=== PATIENT | male | born 1950 | race Caucasian/White ===

== ENCOUNTER 2023-01-19 08:58 | Outpatient (CLI) | payer MEDICARE, SELFPAY | END 2023-01-19 08:59 | disposition home or self-care (01) | PROVIDERS: PCP Family Medicine; Visit Provider Family Medicine | DX: Z00.00 Encounter for general adult medical examination without abnormal findings (principal); E78.00 Pure hypercholesterolemia, unspecified; R31.9 Hematuria, unspecified; Z12.5 Encounter for screening for malignant neoplasm of prostate | CPT/HCPCS: 80053; 80061; 84153 ==

== ENCOUNTER 2023-01-23 08:41 | Outpatient (CLI) | payer MEDICARE, SELFPAY ==
--- NOTE | 2023-01-23 08:15 | CRLHL7_ITS ---
For Patients: As a result of the Century Cures Act, medical imaging exams and procedure reports are released immediately into your electronic medical record. You may view this report before your referring provider. If you have questions, please contact your health care provider. CLINICAL HISTORY: bruit, giddiness TECHNIQUE: The carotid circulations and the vertebral arteries in the neck were examined with bains-scale ultrasound, color-flow and Doppler spectral analysis. Degrees of stenosis were determined using SRU 2002 Consensus Panel Criteria. FINDINGS: Sonographic images demonstrate mild intimal thickening without suspicious soft tissue mass. There was antegrade blood flow demonstrated within the vertebral arteries and the subclavian arteries demonstrated a normal triphasic waveform. The spectral Doppler tracings of the common carotid, internal and external carotid arteries demonstrate no abnormal turbulence or spectral broadening. There was no significant elevation of peak systolic blood flow which would indicate a hemodynamically-significant stenosis by SRU criteria. The ICA/CCA peak systolic velocity ratio measures 0.9 on the right and 0.7 on the left. IMPRESSION: Less than 50 percent stenosis of the internal carotid arteries. Dictated by Pedrito Minor MD @ 01/23/2023 10:01:35 AM (Electronically Signed)
== END 2023-01-23 08:42 | disposition home or self-care (01) ==
LOC: US 08:41
PROVIDERS: PCP Family Medicine; Visit Provider Family Medicine
DX: R09.89 Other specified symptoms and signs involving the circulatory and respiratory systems (principal); R42 Dizziness and giddiness
CPT/HCPCS: 93880

== ENCOUNTER 2023-02-13 07:35 | Outpatient (CLI) | payer MEDICARE, SELFPAY ==
[2023-02-13] MEDS: SODIUM CHLORIDE 0.9 % (FLUSH) 10 ML SYRINGE IVF (09:50)
[2023-02-13] MEDS: REGADENOSON 0.4 MG/5 ML SYRINGE IVP (09:50)
[2023-02-13 10:02] VITALS: BP 150/83; PULSE 67; RESP 16
--- NOTE | 2023-02-13 11:43 | W.PM.STED ---
Stress Test Note Date Date of test: 02/13/23 Providers Primary care provider: Delmer Metz Stress test physician: Jostin Miguel Stress Test Note Stress test ordered: Lexiscan Indication for test: Abnormal EKG Results discussion: Patient is very nice gentleman who presents for the above test after discussion the risks benefits he would like to proceed pretest EKG shows a wide based QRS, more suggestive of a right bundle branch block configuration then left bundle. ST wave abnormalities are noted, throughout the precordium, ventricular rate is 56 and his rhythm is sinus, blood pressure 138/88 standard Lexiscan protocol is done over 5 minute. , patient was asymptomatic, review of the tracing showed no change in his baseline abnormal EKG. Impression: Negative electrographic portion of Lexiscan in a gentleman with abnormal EKG. Follow up suggested: Await nuclear imaging clinical correlation with this will be needed, patient left this testing facility in excellent condition there were no complications.
== END 2023-02-13 10:30 | disposition home or self-care (01) ==
LOC: STRESS 07:36
PROVIDERS: PCP Family Medicine; Visit Provider Family Medicine
DX: R94.31 Abnormal electrocardiogram [ECG] [EKG] (principal); R42 Dizziness and giddiness
CPT/HCPCS: 78452; 93016; 93017; A9500; J2785

== ENCOUNTER 2023-02-22 09:52 | Outpatient (CLI) | payer MEDICARE, SELFPAY | END 2023-02-22 09:53 | disposition home or self-care (01) | LOC: CT 09:53 | PROVIDERS: PCP Family Medicine; Visit Provider Orthopaedic Surgery Sports Medicine | DX: M19.012 Primary osteoarthritis, left shoulder (principal); Z01.818 Encounter for other preprocedural examination | CPT/HCPCS: 73200 ==

== ENCOUNTER 2023-04-25 09:24 | Day surgery (SDC) | payer MEDICARE, SELFPAY ==
[2023-04-25] VITALS (19 sets, daily range): BP systolic 119–148; BP diastolic 73–86; PULSE 50–80; RESP 12–20; TEMP 35.7–36.8; O2SAT 92–99; BMI 29.3
[2023-04-25] MEDS: LACTATED RINGERS 1000 ML 1,000 ML 100 ML IV (09:35)
[2023-04-25] MEDS: SODIUM CHLORIDE 0.9 % (FLUSH) 10 ML SYRINGE IVF (10:25)
[2023-04-25] MEDS: fentaNYL 100 MCG/2 ML inj IVP (10:45)
[2023-04-25] MEDS: MIDAZOLAM HCL 1 MG/ML inj IVP (10:45)
--- NOTE | 2023-04-25 10:53 | SUR.PREOP ---
TIME?OUT:?1044 PT/RN/MDA?VERIFICATION?OF?SURGICAL?SITE,?PROCEDURE,?AND?CONSENT OBTAINED?PRIOR?TO?INVASIVE?PROCEDURE.
--- NOTE | 2023-04-25 11:18 | CRLHL7_ITS ---
For Patients: As a result of the Cures Act, medical imaging exams and procedure reports are released immediately into your electronic medical record. You may view this report before your referring provider. If you have questions, please contact your health care provider. Indication: Postop Technique: Two views left shoulder Findings/Impression: Hardware from a left total shoulder arthroplasty is in satisfactory position. Bone alignment is normal. No sign of acute fracture. Postop changes are within normal limits. Dictated by Pedrito Minor MD @ 04/26/2023 8:15:04 AM (Electronically Signed)
[2023-04-25] MEDS: CEFAZOLIN 2 GM in 0.9 % SODIUM CHLORIDE Mini-bag 100 ML IVPB (11:25)
--- NOTE | 2023-04-25 12:32 | P.NB_ITS ---
Nerve Block Nerve Block Time Seen by Provider: 10:45 Date Seen: 04/25/23 Type of block requested by surgeon for post-operative analgesia: supraclavicular Side: left Time out performed: Yes Verification of patient name: Yes Verification of date of : Yes Site marking: site marked Name of person performing procedure: Glenn Continuous monitoring Was continuous monitoring of O2 sat, B/P, property assessment monitor, recorded every 15 minutes?: Yes Procedure Checklist: sterile prep, needles and gloves Ultrasound guided. Images saved: Yes Medications given in 5ml increments after negative aspiration: Marcaine %: 0.25 mL: 10 and Exparel Decadron (mg): 10 Patient tolerated procedure well: Yes Block Charges Block Charge (with Pro Fee): Brachial Plexus Use of Ultrasound Machine for Block: Yes- US Guidance/pain block
--- NOTE | 2023-04-25 12:33 | W.ANESCHARGE ---
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
--- NOTE | 2023-04-25 12:47 | P.ORPRC_ITS ---
Procedure Note Date of procedure: 04/25/23 Procedure: PREOPERATIVE DIAGNOSIS: 1. Left shoulder osteoarthrosis, primary, severe with fair rotator cuff quality but substantial posterior subluxation and retroversion of the glenoid. 2. Left long head of the biceps tendinopathy and tenosynovitis POSTOPERATIVE DIAGNOSIS: 1. Left shoulder osteoarthrosis, primary, severe with fair rotator cuff quality but substantial posterior subluxation and retroversion of the glenoid. 2. Left long head of the biceps tendinopathy and tenosynovitis PROCEDURE: 1. Left reverse shoulder arthroplasty. 2. Left long head of biceps open tenodesis SURGEON: Pravin Bryant MD. VESSEL OPERATOR: Rudi DILL; Joann Ramon PA-C - Of note, a skilled construction administrative assistant was critical for this case to aid in patient positioning, tissue retraction, limb manipulation/positioning, retraction for glenoid exposure, which was challenging, awareness and protection of critical structures, and closure. ANESTHESIA: General plus supraclavicular block EBL: 150 mL IMPLANTS: DJ0 surgical Altivate humeral stem size 12 standard shell, short with P2 porous coating vitamin E +4 poly standard socket insert RSP glenoid base plate P2 porous coating with 3 perimeter locking screws 32 neutral glenosphere with retaining screw COMPLICATIONS: None evident INDICATIONS: The patient is a pleasant 72-year-old male who has experienced severe left shoulder pain and difficulty with use. Workup included imaging which revealed severe osteoarthrosis along with concern for rotator cuff quality. Physical exam was consistent with associated pain. Given the deformity, the dysfunction, and the pain, and failure of nonoperative management, recommendation was made for surgery. DESCRIPTION OF PROCEDURE: Following a thorough discussion of risks, benefits, and alternatives, consent was obtained and the left shoulder was marked. The patient was brought to the operating room and placed supine on the operating table. Induction of anesthesia was undertaken. 2 g IV Ancef and 1 g tranexamic acid was administered within 1 hr of incision preoperatively. Appropriate time- out was performed identifying proper patient, site, and procedure. The operative extremity was prepped and draped in the appropriate sterile fashion using ChloraPrep after the patient was positioned in the lazy beach chair position with head in neutral alignment and all bony prominences well padded. A longitudinal incision was made for deltopectoral approach. Deltoid was retracted laterally. Cephalic vein was identified and retracted laterally as well. Vein was spared/protected throughout the case. The clavipectoral fascia was identified and divided longitudinally staying lateral to the conjoined tendon / coracoid. The conjoined tendon was protected with a blunt Hohmann. The long head of the biceps tendon was identified and the bicipital sheath released. The upper 1/4 of the pectoralis major was also released from its insertion. The long head of the biceps was tenodesed to the pectoralis major tendon. The remaining proximal tendon tissue was excised. The rotator cuff was inspected and found to have good integrity with the subscapularis but fair integrity with a supraspinatus], and a decision for a reverse shoulder arthroplasty was confirmed. The long head of biceps, of note, was significant flattened, thickened, with abundant tenosynovitis. A subscapularis cuff of tissue was left via tenotomy for later repair with the remaining subscapularis released in a subperiosteal fashion with the Bovie. This was tagged for later repair. The 3 sisters were cauterized. The upper subscapularis was released from the capsule with a curved Cid scissors towards the glenoid. The inferior subscapularis was divided from the capsular tissue on its caudal surface with particular caution for the axillary nerve. This was pa lpated anterior to the subscapularis both prior to and near the finish of the case. Inferior humeral head osteophytes were excised with caution taken throughout the case with regards to the axillary nerve. The humerus was dislocated, and humeral head cut completed. Then a protector plate was applied. We turned our attention to the glenoid. The humerus was retracted posteriorly. The subscap was protected anteriorly and the labrum/long head biceps origin was excised circumferentially. The capsule was released along the anterior and inferior portions of the glenoid cautiously with a Beard elevator being careful not to penetrate deep. The glenoid had appropriate exposure, and was prepared with the cannulated system with a target of approximately 5-10? of inferior tilt and neutral anteversion (patient had 27 ? of retroversion initially). [Utilizing the match Point 3D printed guide, the guide pin was placed. The 3D printed jig removed and after placing the guide pin, the tap was placed followed by the glenoid reaming. The real base plate was opened, and inserted, and excellent compression/purchase was achieved with the central screw. Peripheral screws were then drilled, measured, and placed. The glenosphere was then placed consistent with the preoperative plan utilizing the above noted glenosphere. After securing the glenosphere with the locking, torque limited screw, attention was turned back to the humerus. A canal finder was placed followed by various reamers by hand. The real humeral stem was then opened and inserted with excellent metaphyseal fit and stability. Trial poly was placed and the shoulder reduced. Excellent reduction and stability achieved with appropriate tension on the conjoined tendon. At this stage, trial implants were removed, and the real implants inserted and the shoulder reduced following some bone grafting in the metaphyseal region of the humerus. A 3 minute Betadine soak was performed followed by a thorough irrigation with normal saline. Subscapularis was repaired with #1 PDS to the cuff of tissue on the lesser tuberosity. Excellent reapproximation of tissue achieved. Hemostasis was found to be appropriate. The deltopectoral interval was reapproximated with 0 Vicryl, subcutaneous and subcuticular closure was then performed with number 2-0 Vicryl and 4-0 Monocryl, respectively. A skilled construction administrative assistant was critical for this case to aid in patient positioning, tissue retraction, limb manipulation/positioning, retraction for glenoid exposure, which was challenging, awareness and protection of critical structures, and closure. PLAN: 1. Sling at all times for the operative upper extremity. 2. AROM of elbow, forearm, wrist, and digits as tolerated. 3. OT consults for education and assistance. 4. 23 hr perioperative antibiotics. 5. Early ambulation, and SCDs for DVT prophylaxis. 6. Admit to the hospital for the above 7. Analgesics p.r.n.
--- NOTE | 2023-04-25 12:47 | W.PM.H&PU ---
History & Physical Update History & Physical Update H&P Reviewed and patient assessed: No changes noted
--- NOTE | 2023-04-25 13:49 | SUR.PHASEI ---
patient met discharge criteria per anesthesia
--- NOTE | 2023-04-25 14:01 | P.ANES_ITS ---
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
--- NOTE | 2023-04-25 15:01 | P.IMCN_ITS ---
Date of Consult Patient: [facility] Patient Consult date: 04/25/23 Requesting Physician: Orthopedics Primary Care Provider: Delmer Metz MD Consult Narrative Narrative: Adiel Herrera is a 72 year old male admitted to the hospital for left shoulder arthroplasty. Procedure is performed by Dr. Bryant who requests consultation for medical management postoperatively. Patient reports generally doing well postoperatively. He is having some shoulder pain. He has some sensation and motion in his left hand as well. No shortness of breath, nausea, chills. Preoperatively he was doing well. He did have some cardiac evaluation over the last couple months. He had aortic calcifications noted followed by an abnormal EKG followed by a stress test and an echocardiogram and cardiology consult. The altered result was that he did not need any intervention for heart disease. He is having no cardiovascular symptoms. Left shoulder pain is related to a two decade old injury where he probably di slocated his shoulder but was not discovered for several years. 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 Review of Systems Narrative: He has some nocturia. He was on Flomax but found that it made him feel dizzy. So he stopped it. [facility] Medical History Positive cardiac stress test ?R94.39 - Abnormal result of other cardiovascular function study (ICD-10) BPH associated with nocturia ?N40.1 - Benign prostatic hyperplasia with lower urinary tract symptoms (ICD- 10) ?R35.1 - Nocturia (ICD-10) Right carotid bruit ?R09.89 - Other specified symptoms and signs involving the circulatory and respiratory systems (ICD-10) Abnormal finding on EKG ?R94.31 - Abnormal electrocardiogram [ECG] [EKG] (ICD-10) Lumbar degenerative disc disease ?M51.36 - Other intervertebral disc degeneration, lumbar region (ICD-10) Osteoarthritis of left shoulder ?M19.012 - Primary osteoarthritis, left shoulder (ICD-10) Medicare annual wellness visit, subsequent ?Z00.00 - Encounter for general adult medical examination without abnormal findings (ICD-10) Hypercholesteremia ?E78.00 - Pure hypercholesterolemia, unspecified (ICD-10) Surgical History History of lithotripsy ?Z98.890 - Other specified postprocedural states (ICD-10) History of extraction of renal calculus ?Z98.890 - Other specified postprocedural states (ICD-10) ?Z87.442 - Personal history of urinary calculi (ICD-10) Social History (Updated 04/25/23 @ 15:06 by Aj Noonan MD) Narrative: He lives with his in [place]. 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 He does not smoke. He drinks alcohol about 2 or 3 times a week. What is your current living situation?: I presently have a place to live Problems where you live: no known problems In the past 12 months, utilities in danger of being shut off: no In past 12 months, lack of transportation kept you from medical appts, meetings, work, or getting things needed for daily living: no In the past 12 mos, have been you worried that your food would run out before you had money to buy more?: declined to answer In the past 12 mos, the food you bought just didn't last and you didn't have money to buy more?: declined to answer Highest level of school completed/degree received: some college, no degree Smoking Status: Never smoker Do you use any of these nicotine containing products: None Second hand tobacco smoke exposure: No How often do you have a drink containing alcohol: 2-3 times a week How many standard drinks containing alcohol do you have on a typical day: 1 or 2 AUDIT-C Alcohol total score: 3 Non-prescribed substance use: denies use How often does anyone, including family, friends and others, physically hurt you : never How often does anyone, including family, friends and others, insult or talk down to you: never How often does anyone, including family, friends and others, threaten you with harm: never How often does anyone, including family, friends and others, scream or curse at you: never Little interest or pleasure in doing things: not at all Feeling down, depressed, or hopeless: not at all service: No Meds Home Medications and Allergies Home Medications Medication Instructions Recorded Confirmed Type calcium citrate 200 mg (950 mg) 200 mg PO QDAY 10/12/22 04/25/23 History tablet magnesium oxide 400 mg PO DAILY 10/12/22 04/25/23 History aspirin 81 mg chewable tablet 1 tab PO DAILY 04/12/23 04/25/23 History atorvastatin 20 mg tablet 20 mg PO DAILY 04/12/23 04/25/23 History Home Medication Comments: Aspirin held for 1 week preop Allergies Allergy/AdvReac Type Severity Reaction Status Date / Time pseudoephedrine Allergy Rash Verified 04/25/23 09:39 Exam Narrative: Exam Narrative: He is alert appears in no distress. He gives his own history. Eyes normal. Oropharynx normal. Neck is supple without mass or adenopathy. Respirations are clear to auscultation. Breath sounds are symmetric. Cardiovascular: S1, S2, regular rate and rhythm. Abdomen: Bowel sounds active. Abdomen is soft without tenderness or mass. He has relatively intact sensation in his left hand. Hand is warm to touch with good capillary refill. Good radial pulse. He has fairly good motion in his hand with some weakness. Other extremities are normal with intact pulses sensation and motion. No edema. Const: Vital Signs, click to edit/add: Vital Signs - 24 hr 04/25/23 10:35 04/25/23 10:45 04/25/23 13:14 Temperature 98.0 F 97.2 F L Pulse Rate 51 L 50 L 60 Respiratory Rate 16 16 12 Blood Pressure 141/79 H 134/83 119/73 Pulse Oximetry 99 99 94 Oxygen Delivery Me thod Nasal Cannula Room Air Oxygen Flow Rate 2 04/25/23 13:20 04/25/23 13:25 04/25/23 13:30 Temperature 97.2 F L 97.2 F L 97.2 F L Pulse Rate 62 59 L 59 L Respiratory Rate 13 12 15 Blood Pressure 119/73 123/76 123/77 Pulse Oximetry 94 92 94 Oxygen Delivery Me thod Room Air Room Air Room Air Oxygen Flow Rate 04/25/23 13:35 04/25/23 13:40 Temperature 97.2 F L 97.5 F L Pulse Rate 58 L 57 L Respiratory Rate 16 16 Blood Pressure 125/78 127/78 Pulse Oximetry 93 94 Oxygen Delivery Me thod Room Air Room Air Oxygen Flow Rate Documenting provider has reviewed patient's vital signs: yes Assessment and Plan Assessment and plan (1) Status post reverse arthroplasty of left shoulder: Problem comment: Dr. Bryant 04/25/2023. Routine postoperative care, pain management and therapy Status: Acute (2) BPH associated with nocturia: Problem comment: Bladder scan p.r.n. Status: Acute (3) Hypercholesteremia: Problem comment: Resume atorvastatin. Status: Acute Plan Patient is admitted the hospital for postoperative care. Other medical problems appear to be stable. Resume atorvastatin and other home medications on discharge. Anticipate discharge to home tomorrow.
--- NOTE | 2023-04-25 15:55 | PC.NURSE ---
End of shift [id number] - Pt arrived from PACU at approximately 13:45. Pt alert, oriented, and cooperative with family at bedside. Pt reported pain as 3/10 and refused pain medication. Dressing CDI, cryocuff in place, L arm in sling. Pt reported feeling tingling in his L hand and arm. Movement in hand present. Tolerating RA, ice chips, water, and crackers with no report of nausea. Pt up to void with no report of nausea, dizziness, SOB, increased pain. Pt appears to be resting comfortably at end of shift.
[2023-04-25] MEDS: ACETAMINOPHEN 500 MG TABLET 1000 MG PO (17:35)
--- NOTE | 2023-04-25 21:32 | PC.NURSE ---
Spoke with Ramona HERNANDEZ, patient would like to discharge, but pharmacy is closed for evening. Discussed using [facility]. Ramona states patient should use Tylenol as needed overnight as block will be sufficient for pain control.
== END 2023-04-25 20:30 | disposition home or self-care (01) ==
LOC: OR 09:25 → MEDSURG 09:41
PROVIDERS: PCP Family Medicine; Visit Provider Orthopaedic Surgery Sports Medicine
PROC: 0RRJ0JZ Replacement of Right Shoulder Joint with Synthetic Substitute, Open Approach (ICD-10-PCS; CPT 23472; principal; 2023-04-25 11:00)
DX: M19.012 Primary osteoarthritis, left shoulder (principal); M75.22 Bicipital tendinitis, left shoulder; G89.18 Other acute postprocedural pain
CPT/HCPCS: 23472; 23430; 01638; 64415; 73030; 76942; 97110; 97165; 97535; 99100; A9270; C1713; C1776; C9290; J0330; J0665; J0690; J1100; J2250; J2405; J2704; J3010; J7120

== ENCOUNTER 2023-07-18 11:15 | Outpatient (RCR) | payer MEDICARE, SELFPAY ==
--- NOTE | 2023-04-12 16:00 | OT.OPOE ---
OT Outpatient Ortho Eval OT Outpatient Ortho Eval* Start: 04/12/23 13:16 Freq: Status: Active Protocol: Document 04/12/23 15:27 ABUNDIO (Rec: 04/12/23 15:48 ABUNDIO [id number]) E-signed By Sylwia Echols OTR/L, CLT OT OP Ortho Eval Details Complexity Complexity Low Insurance Information Insurance Information [facility] Outpatient History/Precautions Current Condition/Medical Diagnosis Referring Provider Dr. 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[employer] Subjective Subjective Subjective I want to learn what to expect after having this surgery Pain Assessment Pain Present Pain Present Pain Reported Location Right Shoulder Description Tightness,Throbbing,Chronic, With Movement Intensity 6 Goniometric Comments Goniometric Comments Goniometric Comments R UE is WNL with AROM and Strength L UE, elbow, wrist and hand have full AROM and strength 4/ 5 L Shoulder Flexion 0-95 L Shoulder Extension 0-43 L Shoulder Abduction 0-110 Hand Pinch/Optical Fabrication Technician Strength Hand Right Optical Fabrication Technician Strength Position 1 (lbs) 80 Optical Fabrication Technician Strength Position 2 (lbs) 75 Lateral Pinch Strength (lbs) 24 Left Optical Fabrication Technician Strength Position 1 (lbs) 75 Optical Fabrication Technician Strength Position 2 (lbs) 70 Lateral Pinch Strength (lbs) 24 OT Problems Problems Problems Decreased Strength,Decreased Range of Motion,Pain Other Problems Opening Containers,Sleeping Patient Potential Excellent Assessment Assessment Assessment 72 year old R hand dominant male presents to the clinic for a pre-op shoulder EVAL for his upcoming surgery (L RSA) with Dr. Bryant on 04/25/23. Patient had an injury 15 years ago which was a dislocated L shoulder (but no imagining was taken at the time of injury and ED provider thought injury was RC acute injury and recommended patient do some therapy). About 3-4 year after the initial injury it was found out through imagining that patient had actually dislocated the L shoulder and now permanent damage was done from bone recalcification. Patient lived with the pain and discomfort, had multiple injuries in the R shoulder but now these are no longer working to lessen his pain and discomfort. Patient's goals are to increase AROM and lessen his pain. He is highly motivated and very active, exercising daily for his back/neck and knees (as well as general health and well being). Occupational Therapy Treatment Plan - OP Potential Rehabilitation Potential Excellent Barriers Barriers to goal attainment NONE Set Goals Goals Set with Patient Yes Goals Goals 1. Patient will be INDEP with performing his post-op Exercise Program 2. Patient will be INDEP and accurate with donning/doffing his L UE post-op sling Treatment Plan Treatment Plan Evaluation,Therapeutic Exercise Expected Frequency 1x Week Expected Duration 2-4 Weeks Home Program Home Program Home Program Initiated Home Program Specifics Dr. Bryant's Post-op Protocol Supported Elbow AROM Wrist Circles-AROM Seated Straight Fist AROM Seated Finger Spread Certification Certification I Certify That: Therapy Services Provided, Therapy Plan Established, Therapy Plan Reviewed Recertification Information Recertification Information Initial Certification Date 04/12/23 Recertification Due Date 06/11/23 Provider Signature Shows Agreement With POC & Medical Necessity Physician Comment/Change Comment or Changes Physician NPI Number #
--- NOTE | 2023-05-31 12:12 | PT.OPDN ---
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 Was not too sore after last session. Pain Comments 07/21 Preferred Name Christofer Precautions Treatment Precautions/Contraindications DOS: 04/25/23 Sling until 6 weeks postop visit, come out for elbow ROM, pendulums, bathing, and during sedentary activities. PT starting now for PROM. AAROM at 4-5 weeks postop. Home Exercise Home Exercise Comments [id number] Objective Other/Pertinent Objective L Shoulder PROM Flexion: 135 Abduction: 110 IR: 55 ER: 20 Patient Instructed in Risks/Benefits Yes Therapeutic Exercise Therapeutic Exercise Minutes (minutes) 32 Therapeutic Exercise: To Restore UBE x 5 minutes, backward only Functional Status Pulleys: flexion, scaption x 2 minutes ea Wall washes at 90 degrees flexion x 2 sets to failure Shoulder isometrics: flexion, abduction, extension, adduction, IR, ER x 10 ea, 5 hold Manual Therapy Techniques Manual Therapy Minutes (minutes) 13 Manual Therapy Techniques STJ mobilizations in all directions to diminish adhesions and improve mobility . STM to L UT, levator, anterior shoulder, biceps, triceps, infraspinatus, thoracic paraspinals, and teres group to reduce tissue tension and improv extensibility. Treatment Minutes Timed Code Treatment Minutes 45 Total Treatment Time 45 Billing Units Manual Therapy Units 1 Therapeutic Exercise Units 2 Assessment/Impression Assessment/Impression Pt sore in L UT and pec major this date. Christofer has progressed very well during his time in therapy thus far and has remained consistent with his HEP. Pt also shows good understanding of the healing process following his procedure and has been muir in his judgment in regard to activities that he performs at home, as well as activities that he has chosen to avoid. I have continued to emphasize to Christofer that this recovery can be a slow process until he reaches 6-8 weeks post-op and he gives verbal understanding to this and maintains that he will be patient throughout his recovery. At this time I would recommend that Christofer and I reduce treatment frequency to 1/week as I have no concerns for his ROM in his shoulder, nor for his lack of appropriate performance of his exercises at home. Recommend continued PT services to address deficits and return pt to highest level of function. Plan of Care Physical Therapy Goals STG - To be completed in 2-3 weeks: 1. Pt will report consistent use of his sling on L for 6 weeks post-op to allow for appropriate healing of L shoulder. 2. Pt will demo 120 degrees PROM shoulder elevation to reduce risk of development of adhesive capsulitis and allow for appropriate progression of his rehabilitation. LTG - To be completed in 8-12 weeks: 1. Pt to be I with HEP so that they may I manage progression of symptoms. 2. Pt will report ability to lay on L shoulder in bed without increase in pain so that they may sleep in preferred position to achieve better night's sleep. 3. Pt will demo full and pain free L shoulder strength so that they may return to recreational exercise with their friends. 4. Pt will demo at least 140 degrees of L shoulder elevation so that he may reach for cans of soup on top shelf of pantry. Daily Plan of Care Continue per POC Recertification Information Provider Signature Shows Agreement With POC & Medical Necessity
== END 2023-09-10 09:38 | disposition home or self-care (01) ==
PROVIDERS: PCP Family Medicine; Visit Provider Orthopaedic Surgery Sports Medicine
DX: M19.012 Primary osteoarthritis, left shoulder (principal); Z96.612 Presence of left artificial shoulder joint; M25.512 Pain in left shoulder; Z51.89 Encounter for other specified aftercare
CPT/HCPCS: 97110; 97140; 97161; 97165; X5282

== ENCOUNTER 2023-11-21 09:00 | Outpatient (RCR) | payer MEDICARE, SELFPAY ==
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
--- NOTE | 2023-11-19 12:45 | PT.OPDN ---
PT [place] Outpatient Daily Note PT [facility] Daily Note Start: 10/15/23 07:27 Freq: Status: Active Protocol: Document 11/19/23 09:00 CJT (Rec: 11/19/23 09:47 CJT [id number]) E-signed By Pato Figueroa, PT PT OP Daily Progress Note Visit Information Note Type Recert/Progress Note Visit Number 10 Insurance Authorized Visits tbd Physician Authorized Visits eval and treat Insurance Information Recert Due Date 01/13/24 Insurance Name Medicare B,[employer] [facility] Medical Diagnosis M47.816 - spondylosis without myelopathy or radiculopathy, lumbar region M54.2 - cervicalgia Treating Diagnosis M54.2 - cervicalgia M54.5 - low back pain M25.552 - L hip pain Referring MD Conklin, Melvin JACKSON Subjective Subjective Neck has been good and bad at times. No episodes over the weekend. Pain Comments 0-5/10 Preferred Name Christofer Home Exercise Home Exercise Comments [id number] Objective Other/Pertinent Objective R Hip Strength Flexion - 5/5 MMT Abduction - 5/5 MMT Adduction - 5/5 MMT IR - 5/5 MMT ER - 5/5 MMT Extension - 4+/5 MMT L Hip Strength Flexion - 5/5 MMT Abduction - 5/5 MMT Adduction - 5/5 MMT IR - 5/5 MMT ER - 5/5 MMT Extension - 4+/5 MMT R knee Extension - 5/5 MMT R Knee Flexion - 5/5 MMT L knee Extension - 5/5 MMT L knee Flexion - 5/5 MMT Dorothea's Test: negative B Patient Instructed in Risks/Benefits Yes Manual Therapy Techniques Manual Therapy Minutes (minutes) 40 Manual Therapy Techniques STM/DTM to L glute min, glute med, and piriformis to diminish spasm and improve tissue extensible. STM performed to B suboccipitals, cervical paraspinals, scalenes, UT, levator to reduce tissue tension and improve extensibility. Gentle manual distraction performed to further reduce tissue tension. Grade II-III cervical side glide mobilizations in supine to facilitate sidebending motion. Grade II-III rotational CTJ mobilizations to facilitate rotation ROM. Grade V HVLAT manipualtion performed to CTJ in prone to reduce tissue tension and improve mobility in lower cervical spine. Treatment Minutes Timed Code Treatment Minutes 40 Total Treatment Time 40 Billing Units Therapeutic Exercise Units 3 Assessment/Impression Assessment/Impression Pt demos improved hip abduction strength on R this date. All LE motions are now 5 /5 MMT at this time with exception of hip extension strength which is minimally lacking (4+/5 MMT B). Christofer also has negative Dorothea's test this date indicating reduce anterior thigh tension. While these are positive findings, Christofer's complaint of L posterior hip pain has remained relatively unchanged since he began PT. Pt also notes that his neck pain has improved minimally, however, he has not had pain in his neck for past 4-5 days now. Ultimately, we are running out of options for resolving Christofer's posterior hip pain on L. I will discuss with Christofer at his next treatment session the option of consulting with our Spine care team and possibility of JOVAN if they feel this is appropriate. Recommend continued PT services to address deficits and return pt to highest level of funciton. Plan of Care Physical Therapy Goals STG - To be completed in 2-3 weeks: 1. Pt will report reduction in back pain by factor of 2 so that they may perform all ADLs with tolerable level of pain. MET 2. Pt will demonstrate 5/5 MMT for all LE motions without reproduction of pain to provide greater support to pelvis and lumbar spine. NOT MET - pt continues to lack hip extension strength B LTG - To be completed in 8-12 weeks: 1. Pt to be I with HEP so that they may I manage progression of symptoms. 2. Pt will report ability to hit 50 golf balls at driving range without L hip pain so that he may return to practicing at the range for pleasure. MET 3. Pt will demonstrate 5/5 MMT for both upper and lower abdominals to provide greater support to pelvis and lumbar spine with activity. 4. Pt will demo negative Dorothea's test bilaterally as indication of increased rectus femoris length to reduce anterior pelvis tilt. MET Daily Plan of Care Continue per POC Recertification Information Provider Signature Shows Agreement With POC & Medical Necessity
== END 2024-03-03 08:48 | disposition home or self-care (01) ==
PROVIDERS: PCP Family Medicine; Visit Provider Family Medicine
DX: M54.2 Cervicalgia (principal); M47.816 Spondylosis without myelopathy or radiculopathy, lumbar region; Z51.89 Encounter for other specified aftercare
CPT/HCPCS: 97110; 97140; 97161; 97535

== ENCOUNTER 2024-03-14 11:13 | Outpatient (CLI) | payer MEDICARE, SELFPAY | END 2024-03-14 11:14 | disposition home or self-care (01) | PROVIDERS: PCP Family Medicine; Visit Provider Family Medicine | DX: Z00.00 Encounter for general adult medical examination without abnormal findings (principal); E78.5 Hyperlipidemia, unspecified; R35.1 Nocturia; R03.0 Elevated blood-pressure reading, without diagnosis of hypertension; N40.1 Benign prostatic hyperplasia with lower urinary tract symptoms; N20.0 Calculus of kidney; Z12.5 Encounter for screening for malignant neoplasm of prostate | CPT/HCPCS: 80053; 80061; G0103 ==

== ENCOUNTER 2025-03-19 08:14 | Outpatient (CLI) | payer MEDICARE, SELFPAY | END 2025-03-19 08:15 | disposition home or self-care (01) | LOC: NFLDREF 23:39 | PROVIDERS: PCP Family Medicine; Referring Provider Family Medicine; Visit Provider Family Medicine | DX: I10 Essential (primary) hypertension (principal); E78.5 Hyperlipidemia, unspecified; Z12.5 Encounter for screening for malignant neoplasm of prostate | CPT/HCPCS: 80053; 80061; G0103 ==